=== PATIENT | male | born 1970 | race American Indian/Alaskan Native ===

== ENCOUNTER 2020-04-10 12:11 | Emergency (ER) | payer SELFPAY ==
[2020-04-10 12:51] VITALS: BP 135/71
--- NOTE | 2020-04-10 14:26 | Emergency Department Report ---
ED Extremity Problem HPI - General Chief complaint: Extremity Injury, Lower Stated complaint: LT ANKLE PAINS POSS GOUT Time Seen by Provider: 04/10/20 14:21 Source: patient Mode of arrival: Ambulatory Limitations: No Limitations - History of Present Illness Initial comments: Patient is a 50-year-old male presents emergency room with complaints of an acu te gout flare that began 2 days ago. He states this morning he noticed swelling present. He states his flare is in his left ankle and foot causing pain and swelling. He denies any involvement of the toes. He denies any fall or injury. He states that it has been about a year since he has had a gout flare. He denies any numbness or weakness. He denies any abrasions or being bit by anything. He denies being on any gout medications currently. He has a past medical history of hypertension and diabetes. He reports that his diabetes is well controlled. No allergies to medications. Severity scale (0 -10): 7 - Related Data Previous Rx's Medication Instructions Recorded Last Taken Type Colchicine 0.6 mg PO ONCE 1 Days #3 capsule 04/10/20 Unknown Rx Indomethacin 50 mg PO Q8H #14 capsule 04/10/20 Unknown Rx Prednisone [predniSONE 10 mg 10 mg PO .TAPER #1 tab.ds.pk 04/10/20 Unknown Rx (6-Day Pack, 21 Tabs)] traMADoL [Ultram 50 MG tab] 50 mg PO Q6HR PRN #10 tablet 04/10/20 Unknown Rx Allergies Allergy/AdvReac Type Severity Reaction Status Date / Time No Known Allergies Allergy Unverified 04/10/20 12:47 ED Review of Systems ROS: Stated complaint: LT ANKLE PAINS POSS GOUT Other details as noted in HPI Comment: All other systems reviewed and negative ED Past Medical Hx - Past Medical History Previous Medical History?: Yes Hx Hypertension: Yes Hx Diabetes: Yes Additional medical history: gout - Surgical History Past Surgical History?: Yes Additional Surgical History: left foot surgery- screw placed 5th metatarsal - Medications Home Medications: Home Medications Medication Instructions Recorded Confirmed Last Taken Type Colchicine 0.6 mg PO ONCE 1 Days #3 capsule 04/10/20 Unknown Rx Indomethacin 50 mg PO Q8H #14 capsule 04/10/20 Unknown Rx Prednisone [predniSONE 10 mg 10 mg PO .TAPER #1 tab.ds.pk 04/10/20 Unknown Rx (6-Day Pack, 21 Tabs)] traMADoL [Ultram 50 MG tab] 50 mg PO Q6HR PRN #10 tablet 04/10/20 Unknown Rx ED Physical Exam - General Limitations: No Limitations General appearance: alert, in no apparent distress - Head Head exam: Present: atraumatic, normocephalic - Eye Eye exam: Present: normal appearance - ENT ENT exam: Present: mucous membranes moist - Respiratory Respiratory exam: Absent: respiratory distress, accessory muscle use - Extremities Exam Extremities exam: Present: other (ttp to the left ankle and left foot, there is edema present, there is increased warmth, no significant erythema, pain with ROM but is still able to perform ROM, neurovascularly intact) - Neurological Exam Neurological exam: Present: alert, oriented X3 - Psychiatric Psychiatric exam: Present: normal affect, normal mood - Skin Skin exam: Present: warm, dry, intact ED Course Vital Signs 04/10/20 12:47 Temperature 98.0 F Pulse Rate 66 Respiratory 18 Rate Blood Pressure 135/71 [Left] O2 Sat by Pulse 97 Oximetry ED Medical Decision Making - Medical Decision Making Patient is a 50-year-old male presents emergency room with complaints of an acute gout flare that began 2 days ago. He states this morning he noticed swelling present. He states his flare is in his left ankle and foot causing pain and swelling. He denies any involvement of the toes. He denies any fall or injury. He states that it has been about a year since he has had a gout flare. He denies any numbness or weakness. He denies any abrasions or being bit by anything. He denies being on any gout medications currently. He has a past medical history of hypertension and diabetes. He reports that his diabetes is well controlled. No allergies to medications. VSS. on exam:ttp to the left ankle and left foot, there is edema present, there is increased warmth, no significant erythema, pain with ROM but is still able to perform ROM, neurovascularly intact. Examination appears consistent with acute gout flare. No clinical signs of septic joint at this time. Patient given prescription for prednisone, colchicine, indomethacin, tramadol. Advised patient Please take medication as prescribed. Do not drive or operate heavy machinery while taking pain medication. Follow-up with your primary care doctor. Please follow the diet for gout. Please monitor your blood sugar. Return to emergency room imm ediately for any new or worsening symptoms. Critical care attestation.: If time is entered above; I have spent that time in minutes in the direct care of this critically ill patient, excluding procedure time. ED Disposition Clinical Impression: Gout flare Qualifiers: Gout site: ankle Gout etiology: unspecified cause Laterality: left Qualified Code(s): M10.9 - Gout, unspecified Disposition: DC- TO HOME OR SELFCARE Is pt being admited?: No Does the pt Need Aspirin: No Condition: Stable Instructions: Acute Gouty Arthritis (ED) Additional Instructions: Please take medication as prescribed. Do not drive or operate heavy machinery while taking pain medication. Follow-up with your primary care doctor. Please follow the diet for gout. Please monitor your blood sugar. Return to emergency room immediately for any new or worsening symptoms. Prescriptions: Colchicine 0.6 mg PO ONCE 1 Days #3 capsule Indomethacin 50 mg PO Q8H #14 capsule Prednisone [predniSONE 10 mg (6-Day Pack, 21 Tabs)] 10 mg PO .TAPER #1 tab.ds.pk traMADoL [Ultram 50 MG tab] 50 mg PO Q6HR PRN #10 tablet PRN Reason: Pain , Severe (7-10) Referrals: S[facility]A [facility] MD [Staff Physician] - 2-[address] [facility] [Provider Group] - 2-3 Days [facility], [LAB/CONTRACT] - 2-3 Days Forms: Work/School Release Form(ED) Time of Disposition: 14:24 Print Language: KHMER
== END 2020-04-10 15:24 | disposition home or self-care (01) ==
LOC: EDSEX 12:11 → ED 12:11
DX: M10.9 Gout, unspecified (principal); I10 Essential (primary) hypertension; E11.9 Type 2 diabetes mellitus without complications; Z79.899 Other long term (current) drug therapy; Z98.890 Other specified postprocedural states
CPT/HCPCS: 99282